=== PATIENT | female | born 1965 | race Two or more races ===

== ENCOUNTER → 2020-11-20 | Day surgery (SDC) | payer OTHER ==
[~2020-11-20] MED LIST: AMOX-CLAV 875-1 EACH PO; ELIQUIS5 MG PO; LIPITOR40 M1 PO; MAGNESIUM500 MG PO; PROTONIX40 MG PO; ZETIA PO
== END | disposition home or self-care (01) ==
LOC: ADM 11-15 10:15 → CIR.AMB 07:00 → EDBD 10:15 → CIR.AMB 10:15
PROVIDERS: ATTEND Colon & Rectal Surgery
DX: R15.9 Full incontinence of feces (principal); Z20.822 Contact with and (suspected) exposure to COVID-19
CPT/HCPCS: 64581; C1778

== ENCOUNTER 2020-12-04 06:16 | Day surgery (SDC) | payer OTHER ==
[~2020-12-04 06:16] MED LIST changes: -AMOX-CLAV 875-1 EACH PO
[2020-12-04] MEDS ORDERED: AMOX-CLAV 875-1 EACH PO (08:55)
== END 2020-12-04 10:20 | disposition home or self-care (01) ==
LOC: CIR.AMB 06:16
PROVIDERS: ATTEND Colon & Rectal Surgery
DX: R15.9 Full incontinence of feces (principal); Z20.822 Contact with and (suspected) exposure to COVID-19
CPT/HCPCS: 64590; 95972; L8679

== ENCOUNTER 2025-01-14 06:00 | Day surgery (SDC) | payer OTHER ==
[2025-01-06 13:25] VITALS: BP 122/77
[~2025-01-14] VITALS: Ht 154.9 cm; Wt 73.5 kg
[~2025-01-14 06:00] MED LIST changes: +AMOX-CLAV 875-1 EACH PO; +CLONAZEPAM0.5 MG PO; +DEXILANT60 MG PO; +EMGALITY P120 MG/1 M; +LASIX20 MG PO; +LUMIGAN2.5 M1 OP; +MAXALT10 MG PO; +PROAIR RESPICL90 MCG IH; +RYBELSUS14 MG PO; +SEROQUEL200 MG PO; +SINGULAIR10 MG PO; +TOPIRAMATE ER50 MG PO; +XARELTO2.5 MG PO; +XYZAL5 MG PO
[2025-01-14] MEDS ORDERED: CEFAZOLIN SODIUM 1,000 MG VIAL ONE (06:56)
[2025-01-14] MEDS ORDERED: LIDOCAINE HCL 1%/EPINEPHRINE 20ML VIAL IJ ONE (07:06)
[2025-01-14] MEDS ORDERED: BUPIVACAINE HCL/MPF 0.5% 30ML VIAL ONE (07:06)
== END 2025-01-14 11:55 | disposition home or self-care (01) ==
LOC: CIR.AMB 06:00
PROVIDERS: ATTEND Colon & Rectal Surgery
DX: R15.9 Full incontinence of feces (principal); T85.111A Breakdown (mechanical) of implanted electronic neurostimulator of peripheral nerve electrode (lead), initial encounter; T85.732A Infection and inflammatory reaction due to implanted electronic neurostimulator of peripheral nerve, electrode (lead), initial encounter; Z88.6 Allergy status to analgesic agent
CPT/HCPCS: 64581; 64590; 95971; C1767; C1778